=== PATIENT | female | born 1990 | race Caucasian/White ===

== ENCOUNTER 2021-09-28 14:48 | Inpatient (IN) | payer BC ==
[~2021-09-28] VITALS: Ht 149.9 cm; Wt 66.2 kg
[2021-09-28] MEDS ORDERED: PRENATAL ONE T1 EAC1 PO (17:34)
[2021-09-28 17:44] LABS: RED BLOOD COUNT 4.19 M/UL (4.00-5.10); WHITE BLOOD COUNT 28.3 K/UL (4.5-11.0)
[2021-09-29 06:33] LABS: HEMOGLOBIN 11.7 gm/dl (12.3-15.3)
[2021-09-30] MEDS ORDERED: HYDROCODON-ACE1 EAC6 PO (11:38)
[2021-09-30] MEDS ORDERED: COLACE 100MG C100 MG PO (11:38)
[2021-09-30] MEDS ORDERED: IBUPROFEN600 MG PO (11:38)
== END 2021-09-30 16:47 | disposition home or self-care (01) | DRG 786 ==
LOC: GENOP 14:48 → OB 16:53
PROVIDERS: ADMIT Obstetrics & Gynecology
PROC: 4A1HXCZ Monitoring of Products of Conception, Cardiac Rate, External Approach (ICD-10-PCS; 2021-09-28)
PROC: 10D00Z1 Extraction of Products of Conception, Low, Open Approach (ICD-10-PCS; principal; 2021-09-28 21:08)
PROC: 3E0234Z Introduction of Serum, Toxoid and Vaccine into Muscle, Percutaneous Approach (ICD-10-PCS; 2021-09-29)
DX: O76 Abnormality in fetal heart rate and rhythm complicating labor and delivery (principal); O41.1230 Chorioamnionitis, third trimester, not applicable or unspecified; O99.824 Streptococcus B carrier state complicating childbirth; Z20.822 Contact with and (suspected) exposure to COVID-19; Z37.0 Single live birth; Z3A.40 40 weeks gestation of pregnancy; Z86.73 Personal history of transient ischemic attack (TIA), and cerebral infarction without residual deficits; Z83.2 Family history of diseases of the blood and blood-forming organs and certain disorders involving the immune mechanism; Z81.8 Family history of other mental and behavioral disorders; Z83.49 Family history of other endocrine, nutritional and metabolic diseases; Z80.9 Family history of malignant neoplasm, unspecified; O77.0 Labor and delivery complicated by meconium in amniotic fluid; Z23 Encounter for immunization
CPT/HCPCS: 36415; 81001; 82800; 85014; 85018; 85025; 90715; C9113; J0690; J1200; J1580; J1885; J1956; J2210; J2250; J2274; J2300; J2370; J2405; J2540; J2590; J3010; J7070; J7120; U0002